=== PATIENT | female | born 1985 | race Caucasian/White ===

== ENCOUNTER 2017-09-08 09:15 | Day surgery (SDC) | payer BC ==
[2017-09-08 09:57] VITALS: BMI 34.4
[2017-09-08 09:59] VITALS: BP 131/79; TEMP 98.2
--- NOTE | 2017-09-08 11:44 | PRG ---
DATE OF SERVICE: 09/08/2017 OB ER ENCOUNTER PRIMARY OB: Dr. Kale Boland CHIEF COMPLAINT: Decreased movement. HISTORY OF PRESENT ILLNESS: The patient is a 31-year-old G4, P1 female with a history of a 17-week l oss and most recently a primary or first trimester loss who is now 38 weeks, has an intrauterine preg casimiro at 38 weeks and reports that she is not feeling her baby move as much as she used to and in par ticularly in the last 12 hours has felt no movement. Patient reports that she is used to have the ba by moving after she eats and lies on her side and did not feel that last night or this morning. She reports a history of hypothyroidism and on Synthroid. The patient denies any recent illness, fever, headache, chest pain, shortness of breath, nausea, vomiting, diarrhea, or constipation. She denies a ny new rashes. She denies any vaginal bleeding or leakage of fluid or uterine contractions. She den ies any urinary symptoms. PAST MEDICAL HISTORY: Thyroid disorder, migraines. PAST SURGICAL HISTORY: Cholecystectomy, D&C, and C section. ALLERGIES: AUGMENTIN. MEDICATIONS: vitamins and Folgard. SOCIAL HISTORY: Denies drug, alcohol or tobacco use. OB LABORATORY DATA: Blood type is O negative, antibody screen is negative. She is rubella immune, R VA nonreactive, hepatitis B surface antigen nonreactive, HIV nonreactive. Her one hour Glucola was 1 19, her quad screen was negative. She is GBS. GBS results are unknown at this time, though testing was performed in July. REVIEW OF SYSTEMS: Per HPI. PHYSICAL EXAMINATION: VITAL SIGNS: Blood pressure 128/84, heart rate of 93, 97% O2 saturation, respiratory rate is 20. GENERAL: She appears to be in no acute distress. She is alert and oriented, and cooperative and ple asant to interact with. HEENT: Normocephalic, atraumatic. ABDOMEN: Soft. GENITOURINARY: Deferred. IMAGIN. heart tracing performed for decreased movement. Baseline is in the 140s with moderat e long-term variability, positive accelerations, no decelerations. Tocometer is without contractions . 2. Bedside ultrasound demonstrates an PAT of 13. ASSESSMENT AND PLAN: The patient is a 31-year-old G4, P1 female with an intrauterine at 38 weeks and 5 days, presenting with decreased movement. There is no evidence at this time of fe ze compromise as evidenced by a reactive NST and normal fluid levels. The patient has an appointmen t on Saturday with her primary OB, Dr. Boland which we have encouraged her to keep. She also has bee n given term labor precautions.
== END 2017-09-08 10:50 | disposition home or self-care (01) ==
LOC: L&D/OP 09:15
PROVIDERS: ATTEND Obstetrics & Gynecology
DX: O36.8130 Decreased fetal movements, third trimester, not applicable or unspecified (principal); O99.283 Endocrine, nutritional and metabolic diseases complicating pregnancy, third trimester; E07.9 Disorder of thyroid, unspecified; O99.355 Diseases of the nervous system complicating the puerperium; G43.909 Migraine, unspecified, not intractable, without status migrainosus; Z88.1 Allergy status to other antibiotic agents; Z88.8 Allergy status to other drugs, medicaments and biological substances; Z79.899 Other long term (current) drug therapy; Z3A.38 38 weeks gestation of pregnancy; Z90.49 Acquired absence of other specified parts of digestive tract; Z98.891 History of uterine scar from previous surgery; Z98.890 Other specified postprocedural states
CPT/HCPCS: 59025; 76815

== ENCOUNTER 2017-09-13 10:08 | Inpatient (IN) | payer BC ==
[2017-09-13 10:47] VITALS: BMI 34.8
[2017-09-13] MEDS ORDERED: Ondansetron HCl/PF 4 MG/2 ML Vial IVP PRN ×4 (11:14→14:00)
[2017-09-13] MEDS ORDERED: Promethazine HCl 25 MG/ML VIAL IM PRN ×2 (11:14→12:25)
[2017-09-13] MEDS ORDERED: Lactated Ringer's 1,000 ML IV SCH (11:14)
[2017-09-13] MEDS ORDERED: Clindamycin/D5W 900 MG in Premix Bag 1 BAG IVPB SCH (11:15)
[2017-09-13 11:27] LABS: Hematocrit 41.4 % (36.0-47.0); Mean Platelet Volume 8.1 fL (7.4-10.4); Red Blood Cell (RBC) Count 4.44 mill/uL (4.20-5.40); White Blood Cell (WBC) Count 13.5 thou/uL (4.8-10.8)
[2017-09-13] MEDS ORDERED: Bicitra 30 ML UDCUP PO SCH (11:30)
[2017-09-13] MEDS ORDERED: Morphine PF 1 MG/ML SYR ONE (11:56)
[2017-09-13] MEDS ORDERED: ePHEDrine/0.9% NaCl/PF SYRINGE 50 mg/10 ml ONE ×2 (11:57→15:28)
[2017-09-13] MEDS ORDERED: Oxytocin 10 UNITS/ML VIAL ONE ×2 (11:57→13:24)
[2017-09-13] MEDS ORDERED: Ondansetron HCl/PF 4 MG/2 ML Vial ONE ×2 (11:57→15:28)
[2017-09-13] MEDS ORDERED: Naloxone HCl 0.4 mg/ml Vial IVP PRN ×2 (12:25)
[2017-09-13] MEDS ORDERED: Meperidine HCl/PF 25 MG/ML VIAL SLOW IVP PRN (12:25)
[2017-09-13] MEDS ORDERED: Naloxone HCl 0.4 mg/ml Vial IV PRN (12:25)
[2017-09-13] MEDS ORDERED: HYDROmorphone 2 MG/ML VIAL SLOW IVP PRN (12:25)
[2017-09-13] MEDS ORDERED: Eucerin (Mineral Oil/Petrolatum,White) 30 gm Jar TOP PRN (12:25)
[2017-09-13] MEDS ORDERED: Promethazine HCl 25 MG SUPP PR PRN (12:25)
[2017-09-13] MEDS ORDERED: diphenhydrAMINE 50 MG/ML VIAL IVP PRN (12:25)
[2017-09-13] MEDS ORDERED: Acetaminophen 1,000 MG in Premix Bag 1 BAG IVPB PRN (12:28)
[2017-09-13] MEDS ORDERED: Ketorolac Tromethamine 30 MG/ML VIAL IVP SCH ×2 (12:30)
[2017-09-13] MEDS ORDERED: Communication Order-Pharmacy FS SCH (12:30)
[2017-09-13] MEDS ORDERED: PHENYLEPHRINE-NS 100 MCG/ML 10 ML SYRINGE ONE ×2 (12:48→15:28)
[2017-09-13] MEDS ORDERED: Labetalol HCl 100 MG/20 ML VIAL ONE (13:04)
[2017-09-13] MEDS ORDERED: Fentanyl 100 MCG/2 ML VIAL ONE (13:36)
[2017-09-13] MEDS ORDERED: Lanolin Ointment 7 GM TUBE TOP PRN (14:00)
[2017-09-13] MEDS ORDERED: Adacel (T-DAP) 0.5 ML VIAL IM ONE (14:00)
[2017-09-13] MEDS ORDERED: Bisacodyl 10 MG SUPP PR PRN (14:00)
[2017-09-13] MEDS ORDERED: Zolpidem Tartrate 5 MG TAB PO PRN (14:00)
[2017-09-13] MEDS ORDERED: Meperidine HCl/PF 25 MG/ML VIAL IM PRN (14:00)
[2017-09-13] MEDS ORDERED: diphenhydrAMINE 25 MG CAP PO PRN (14:00)
[2017-09-13] MEDS ORDERED: Ketorolac Tromethamine 30 MG/ML VIAL ONE (14:46)
[2017-09-13] MEDS ORDERED: LR / Pitocin 40 units/1000 ml 1,000 ML ONE (15:53)
[2017-09-13] MEDS ORDERED: LR / Pitocin 40 units/1000 ml 1,000 ML IV SCH (16:45)
[2017-09-13] MEDS: Ibuprofen 800 MG TAB PO SCH (17:22)
[2017-09-13] MEDS: Ketorolac Tromethamine 30 MG/ML VIAL IVP SCH (19:24)
[2017-09-13] MEDS: Simethicone Chewable 80 MG TAB PO PRN (23:14)
[2017-09-13] MEDS ORDERED: Magnesium 2 GM/NS 0.9% 100 ML 2 GM in Premix Bag 1 BAG IVPB SCH (23:45)
[2017-09-14] MEDS: Ibuprofen 800 MG TAB PO SCH ×4 (00:01→21:35)
[2017-09-14] MEDS: Docusate (Surfak) 240 MG CAP PO SCH ×3 (00:39→21:35)
[2017-09-14] MEDS: Ferrous Sulfate 325 MG TAB PO SCH ×3 (00:39→21:35)
[2017-09-14] MEDS: Lactated Ringer's 1,000 ML IV SCH ×2 (00:42→02:18)
[2017-09-14] MEDS: Ketorolac Tromethamine 30 MG/ML VIAL IVP SCH ×3 (03:00→21:58)
[2017-09-14 06:03] LABS: Hematocrit 26.8 % (36.0-47.0); Mean Platelet Volume 7.4 fL (7.4-10.4); Red Blood Cell (RBC) Count 2.81 mill/uL (4.20-5.40); White Blood Cell (WBC) Count 13.7 thou/uL (4.8-10.8)
[2017-09-14] MEDS: Prenatal Vitamin 1 TAB PO SCH (09:51)
[2017-09-14] MEDS: Simethicone Chewable 80 MG TAB PO PRN ×2 (09:51→18:03)
[2017-09-14] MEDS: Acetaminophen/Codeine 30-300mg Tablet PO PRN ×3 (09:52→19:50)
[2017-09-14] MEDS ORDERED: Sodium Chloride 0.9% 1,000 ML IV SCH (12:30)
--- NOTE | 2017-09-14 12:43 | PDOC.EVN ---
Event Note - Event Note Event Note: I was called by JOHANNE Holguin to evaluate Mrs. Reese for repeated syncope/near syncope with 3 episodes since last night. Pt states that her vision gets dark and then she gets dizzy but she can still hear. Episode last night was associated with chest pressure but no pain. Today's episode happened while she was in the shower (and had been in there for a while when symptoms began per the RN). She had an EKG last night which, per RN, was read as normal. Pt denies any current chest pain, nausea, vomiting or heavy bleeding with the exception of episode last night that resulted in blood on the floor. She has been tolerating PO. She did report some shoulder pain to the RN but her incisional and abdominal pain has been well controlled on Tylenol #3, Toradol, and Motrin. Vital Signs (12 hours) Temp Pulse Pulse Pulse Pulse Pulse Pulse 09/14/17 04:00 98.1 F 85 09/14/17 02:00 97.5 F L 78 71 09/14/17 01:33 81 77 110 H 110 H 09/14/17 00:45 90 Pulse Resp Resp Resp Resp Resp Resp 09/14/17 04:00 18 09/14/17 02:00 18 16 09/14/17 01:33 81 20 24 H 24 H 36 H 09/14/17 00:45 18 Resp BP BP BP BP BP BP 09/14/17 04:00 109/62 09/14/17 02:00 67/45 L 111/55 L 09/14/17 01:33 24 H 67/30 L 68/40 L 102/58 L 100/59 L 09/14/17 00:45 107/57 L Pulse Ox Pulse Ox Pulse Ox Pulse Ox Pulse Ox 09/14/17 04:00 09/14/17 02:00 96 09/14/17 01:33 96 94 L 99 97 09/14/17 00:45 Weight Weight 236 lb Gen. comfortably lying in bed, NAD Resp: CTA bilat no W, R, R CV: RRR no G, R, I/ SM Abd: Inc C/D/I with dermabond, no induration or erythema. SOft, NT, ND. Fundus firm at umbilicus and NT Ext: no C, C, E Orthostatics: Ooylee010/63 P 95 Sitting 118/63 P116 Standing 124/66 P 118 A/P: POD #1 s/p CD for breech with recurrent syncope vs near syncope. I suspect vasovagal vs. fluid status given the positive orthostatics. Dr. Boland has been made aware and is en route. Will check CBC, BMP, cardiac panel. Will start 1L NS fluid bolus and then repeat orthostatics. I will follow up on labs.
[2017-09-14] MEDS ORDERED: Sodium Chloride 0.9% 10 ML ONE (13:14)
[2017-09-14 13:15] LABS: #Basophils 0.1 thou/uL (0.0-0.2); #Eosinphils 0.1 thou/uL (0.0-0.7); #Lymphocytes 0.9 thou/uL (1.20-3.40); #Monocytes 0.5 thou/uL (0.11-0.59); #Neutrophils 8.5 thou/uL (1.40-6.50); %Basophils 0.7 % (0.0-1.0); %Eosinophils 0.5 % (0.0-10.0); %Lymphocytes 8.9 % (21.0-51.0); %Monocytes 4.5 % (0.0-10.0); Hematocrit 28.6 % (36.0-47.0); Mean Platelet Volume 7.9 fL (7.4-10.4); Red Blood Cell (RBC) Count 3.01 mill/uL (4.20-5.40); White Blood Cell (WBC) Count 9.9 thou/uL (4.8-10.8)
[2017-09-14 13:21] LABS: Anion Gap 12 mmol/L (10-20); BUN (Urea Nitrogen) 8 mg/dL (7.0-18.7); Calc. Creatinine Clearance 209 mL/min (70-130); Calcium 8.8 mg/dL (7.8-10.44); Carbon Dioxide 22 mmol/L (22-29); Chloride 107 mmol/L (98-107); Estimated GFR-MDRD Greater than 90
[2017-09-14 13:41] LABS: Troponin I Less than 0.010 ng/mL (< 0.028)
--- NOTE | 2017-09-14 14:26 | PDOC.EVN ---
Event Note - Event Note Event Note: Labs reviewed. Hct is relatively stable. Although CK MB is elevated this could be secondary to recent delivery and the Troponin I was normal as are electrolytes. Will proceed with the IVF ordered by Dr. Boland and he will be back to see the patient after her bolus. Laboratory Results - last 24 hr 09/14/17 09/14/17 09/14/17 05:24 12:59 12:59 WBC 13.7 H RBC 2.81 L Hgb 9.3 L Hct 26.8 L MCV 95.3 MCH 33.1 H MCHC 34.8 RDW 12.5 Plt Count 225 MPV 7.4 Neutrophils % Lymphocytes % Monocytes % Eosinophils % Basophils % Neutrophils # Lymphocytes # Monocytes # Eosinophils # Basophils # Fibrinogen Sodium 137 Potassium 4.0 Chloride 107 Carbon Dioxide 22 Anion Gap 12 BUN 8 Creatinine 0.66 Estimated GFR (MDRD) Greater than 90 Glucose 105 Calcium 8.8 CK-MB (CK-2) 7.9 H* Troponin I Less than 0.010 09/14/17 09/14/17 12:59 12:59 WBC 9.9 RBC 3.01 L Hgb 9.7 L Hct 28.6 L MCV 95.2 MCH 32.1 H MCHC 33.7 RDW 12.5 Plt Count 218 MPV 7.9 Neutrophils % 85.3 H Lymphocytes % 8.9 L Monocytes % 4.5 Eosinophils % 0.5 Basophils % 0.7 Neutrophils # 8.5 H Lymphocytes # 0.9 L Monocytes # 0.5 Eosinophils # 0.1 Basophils # 0.1 Fibrinogen 425 Sodium Potassium Chloride Carbon Dioxide Anion Gap BUN Creatinine Estimated GFR (MDRD) Glucose Calcium CK-MB (CK-2) Troponin I
[2017-09-14] MEDS: D5 LR 500 ML IV SCH ×3 (21:54→21:57)
[2017-09-14] MEDS: Dextrose 5%-Lactated Ringers 1,000 ML IV SCH (21:58)
[2017-09-15] MEDS: Simethicone Chewable 80 MG TAB PO PRN ×2 (00:05→09:26)
[2017-09-15] MEDS: Dextrose 5%-Lactated Ringers 1,000 ML IV SCH ×4 (00:39→22:58)
[2017-09-15] MEDS: Ketorolac Tromethamine 30 MG/ML VIAL IVP SCH ×4 (00:39→21:20)
[2017-09-15] MEDS: Acetaminophen/Codeine 30-300mg Tablet PO PRN ×4 (02:55→19:44)
[2017-09-15] MEDS: Ibuprofen 800 MG TAB PO SCH ×3 (05:55→21:00)
[2017-09-15] MEDS: Prenatal Vitamin 1 TAB PO SCH (09:26)
[2017-09-15] MEDS: Docusate (Surfak) 240 MG CAP PO SCH ×2 (09:26→21:00)
[2017-09-15] MEDS: Ferrous Sulfate 325 MG TAB PO SCH ×2 (09:26→21:00)
[2017-09-16] MEDS: Simethicone Chewable 80 MG TAB PO PRN (01:53)
[2017-09-16] MEDS: Acetaminophen/Codeine 30-300mg Tablet PO PRN ×3 (04:32→13:16)
[2017-09-16] MEDS: Ibuprofen 800 MG TAB PO SCH ×2 (05:45→13:16)
[2017-09-16 09:08] VITALS: BP 117/67; TEMP 98.7
[2017-09-16] MEDS: Prenatal Vitamin 1 TAB PO SCH (09:09)
[2017-09-16] MEDS: Ferrous Sulfate 325 MG TAB PO SCH (09:09)
[2017-09-16] MEDS: Docusate (Surfak) 240 MG CAP PO SCH (09:09)
[2017-09-16] MEDS: Dextrose 5%-Lactated Ringers 1,000 ML IV SCH (09:46)
--- NOTE | 2017-09-16 10:46 | OP ---
DATE OF PROCEDURE: 09/13/2017 ATTENDING STAFF PHYSICIAN: Kale Boland M.D. SURGEON: Kale Boland M.D. SOUND ENGINEER SURGEON: Leola Roman M.D. PREOPERATIVE DIAGNOSES: 1. Term intrauterine at 39 and 3/7 weeks. 2. Prior . 3. Hitesh breech presentation. POSTOPERATIVE DIAGNOSES: 1. Term intrauterine at 39 and 3/7 weeks. 2. Prior . 3. Hitesh breech presentation. PROCEDURE: Repeat low-transverse section. ANESTHESIA: Spinal catheterization. FINDINGS: 1. Hitesh breech presentation. 2. Small uterine window with scar dehiscence. 3. Nuchal cord x2. 4. Normal fallopian tubes and ovaries. 5. Vigorous male , 7 pounds 13 ounces, Apgars 8 and 9. COMPLICATIONS: None. SPECIMENS REMOVED: Cord blood. BLOOD LOSS: 800-900 mL. PROCEDURE FOLLOWS: After thorough consent and counseling, Mrs. Reese was taken to the operating room and an adequate level of anesthesia was obtained via spinal catheterization. The patient was pr epped and draped in the usual sterile fashion for abdominal surgery. A Farfan was placed in the [facility] er, which was noted to be draining clear urine. Attention was then turned to performing the repeat C -section for breech presentation. A Pfannenstiel incision was made and carried sharply to the fascia, which was also sharply incised. The midline was identified and the rectus muscles were retracted laterally. The abdominopelvic cavit y was entered with usual safeguards carried out. A retractor was placed and a bladder flap was creat ed on the vesicouterine peritoneum. The bladder blade was then placed. A low-transverse incision wa s made on the well-developed lower uterine segment. Upon entering the amniotic sac, a small amount o f clear amniotic fluid was visualized. The was noted to be somewhat in an oblique presentatio n with head facing down. The baby was ballottable in the pelvis. Internal version was performed and the head was delivered into the incision. A vacuum was used to facilitate delivery of the head in a n atraumatic fashion. Nuchal cord x2 was reduced. Shoulders and body were then carefully delivered in an atraumatic fashion. The cord was doubly clamped and cut and the infant was handed to the [facility] tology team in attendance for the delivery. The infant was a vigorous viable male weighing 7 pounds 13 ounces with Apgars of 8 and 9 obtained at 1 and 5 minutes respectively. Cord blood was obtained. The placenta was manually removed from the uterus. The uterus was exteriorized and poor tone was in itially noted. Vigorous massage was performed with subsequent improvement in tone. There was an ext ension out laterally into the left descending branch of the uterine artery. Frye clamps were p laced on the lower segment and the bleeder. Brisk bleeding was noted initially, all this was very qu ickly controlled. The low-transverse incision was closed with a running locking ligature of #1 chrom ic. A second imbricating layer was placed to faciliate and strengthen hemostasis secondary to the sm all scar dehiscence, which measured about 4 cm in the midline. The vesicouterine peritoneum was reap proximated at the lower uterine segment with a running ligature of 3-0 Monocryl suture. The posterio r cul-de-sac and gutters were cleared of clot and fluid. The incisions were carefully inspected and noted to be normal. The uterus, fallopian tubes, and ovaries were all inspected and noted to be norm al. The uterus was returned to the abdomen and good tone and hemostasis was appreciated. Initially, lap, sponge, and needle counts were incorrect by missing 1 sponge. There was a diligent search for the sponge, which was finally identified up underneath the pubic bone in the anterior cul-de-sac. On ce this was identified, lap, sponge, and needle counts were correct. The peritoneum was then closed with a running ligature of 2-0 Vicryl. Rectus muscles were reapproximated in the midline with interr upted ligatures of 2-0 Vicryl. The fascia was then closed with 2 ligatures of 0 Vicryl, which were t ied in the midline. The incision was irrigated with copious amount of warm normal saline. The subcu taneous tissue was then closed with interrupted ligatures of 2-0 plain suture. The skin was closed w ith a subcuticular stitch of 4-0 Monocryl. Pressure dressing and ice pack subsequently placed. Lap, sponge, and needle counts correct x3. Estimated blood loss during the surgical procedure was approx imately 800-900. The patient was taken to the recovery room in good condition. Immediately following surgery, the pat ient and family were made aware of the surgical procedure and operative findings. Questions answered to their satisfaction.
== END 2017-09-16 14:19 | disposition home or self-care (01) | DRG 766 ==
LOC: L&D 10:08 → 3SW 16:44 → EDSTATUS 09-28 11:01
PROVIDERS: ADMIT Obstetrics & Gynecology; ATTEND Obstetrics & Gynecology
PROC: 10D00Z1 Extraction of Products of Conception, Low, Open Approach (ICD-10-PCS; principal; 2017-09-13)
PROC: 10907ZC Drainage of Amniotic Fluid, Therapeutic from Products of Conception, Via Natural or Artificial Opening (ICD-10-PCS; 2017-09-13)
DX: O32.1XX0 Maternal care for breech presentation, not applicable or unspecified (principal); O34.219 Maternal care for unspecified type scar from previous cesarean delivery; O69.1XX0 Labor and delivery complicated by cord around neck, with compression, not applicable or unspecified; Z37.0 Single live birth; Z3A.39 39 weeks gestation of pregnancy
CPT/HCPCS: 36415; 51702; 80048; 82553; 84484; 85027; 85384; 86780; 86850; 86900; 86901; 87340; 93005; 93010; A4216; J1885; J2175; J2274; J2405; J2590; J3010; J3475; J3490

== ENCOUNTER 2019-06-25 13:53 | Outpatient (CLI) | payer OTHER ==
--- NOTE | 2019-06-25 15:45 | ULT ---
THYROID ULTRASOUND: 06/25/19 HISTORY: Enlarged thyroid gland. Real time imaging of the right and left lobes of the gland were performed. Th e right lobe measures 1.6 x 2 x 4.7 cm. Left lobe 1.6 x 1.9 x 4.7 cm. On the right side in the upper pole region, there is an approximately 1.4 x 1.8 cm solid nodule. The margins of which are somewhat ill-defined. No microcalcifications. On the left side, there is a 1.2 x 1.9 cm solid nodule, more in the mid pole region. It is also isoec hoic to surrounding tissue, wider than tall, slightly ill-defined borders and no calcifications. IMPRESSION: Bilateral thyroid nodules. Both of these would be TI-RADS 3 lesions for which follow-up is recommende d given their size. POS: DALE
== END 2019-06-25 13:54 | disposition home or self-care (01) ==
LOC: SCSULT 13:53
PROVIDERS: ATTEND Nurse Practitioner Family
DX: E04.9 Nontoxic goiter, unspecified (principal); E04.2 Nontoxic multinodular goiter
CPT/HCPCS: 76536

== ENCOUNTER 2019-07-21 12:35 | Day surgery (SDC) | payer OTHER ==
[~2019-07-21 12:35] MED LIST: FLU VACC QS2019-20(6MOS UP)/PF 60 MCG/0.5 ML SYRINGE IM ONE
[2019-07-21] MEDS ORDERED: Sodium Bicarbonate 2.5 MEQ/5 ML VIAL ONE (12:53)
[2019-07-21] MEDS ORDERED: Lidocaine 1% PF 5 ML VIAL ONE (12:53)
[2019-07-21 13:39] VITALS: BP 115/76; TEMP 98
--- NOTE | 2019-07-21 14:31 | ULT ---
ULTRASOUND GUIDED FINE NEEDLE ASPIRATION HYPOECHOIC NODULE SUPERIOR RIGHT LOBE OF THYROID: ULTRASOUND GUIDED FINE NEEDLE ASPIRATION HYPOECHOIC NODULE LEFT THYROID: INDICATIONS: Prior thyroid nodules have been detected on ultrasound. The patient is referred for FNA of the nodule s seen in both the right and left lobes. FINDINGS: The hypoechoic nodule posterior left mid lobe is sampled with FNA using a 25 gauge needle. Two FNA sa mples were obtained through this nodule under ultrasound guidance. Ultrasound confirms the location o f the sample within the nodule. The sample is given to pathology and adequacy was confirmed. A 25 gauge needle FNA was performed on the nodule in the superior right lobe, under ultrasound guidan ce. Two samples were obtained. Ultrasound confirmed sampling through the mid portion of the nodule wi th each sample. Pathology confirmed adequacy. PROCEDURE IN DETAIL: The thyroid was evaluated with ultrasound and the previously noted nodules were again identified. The skin was prepped and draped in a sterile manner. Local anesthesia was administe red with Lidocaine and bicarbonate on the left, under ultrasound guidance. The left lobe nodule was t hen sampled with a 25 gauge needle FNA under, ultrasound guidance, x2. Local anesthesia was then admi nistered on the right, under ultrasound guidance. The right thyroid nodule was sampled under ultrasou nd guidance with a 25 gauge needle x2. The patient tolerated the procedure well and there were no problems or complications. POS: BERNARD
== END 2019-07-21 14:10 | disposition home or self-care (01) ==
LOC: ULT 12:35
PROVIDERS: ATTEND Otolaryngology Plastic Surgery within the Head & Neck
PROC: 0GBH3ZX Excision of Right Thyroid Gland Lobe, Percutaneous Approach, Diagnostic (ICD-10-PCS; principal; 2019-07-21)
PROC: BG44ZZZ Ultrasonography of Thyroid Gland (ICD-10-PCS; principal; 2019-07-21)
PROC: 0GBG3ZX Excision of Left Thyroid Gland Lobe, Percutaneous Approach, Diagnostic (ICD-10-PCS; principal; 2019-07-21)
DX: E04.1 Nontoxic single thyroid nodule (principal); E03.9 Hypothyroidism, unspecified; J34.3 Hypertrophy of nasal turbinates; Z79.899 Other long term (current) drug therapy; Z87.891 Personal history of nicotine dependence; Z88.0 Allergy status to penicillin
CPT/HCPCS: 60100; 76942; 88173; 90471; 90686; G0008; J2001

== ENCOUNTER 2019-07-27 08:46 | Outpatient (CLI) | payer OTHER | END 2019-07-27 08:47 | disposition home or self-care (01) | LOC: CTENTCT 08:46 | PROVIDERS: ATTEND Otolaryngology Plastic Surgery within the Head & Neck | DX: J32.9 Chronic sinusitis, unspecified (principal) | CPT/HCPCS: 70486 ==

== ENCOUNTER 2020-05-26 09:09 | Outpatient (CLI) | payer OTHER ==
--- NOTE | 2020-05-26 10:34 | ULT ---
THYROID ULTRASOUND: HISTORY: Thyroid nodule and neck pressure. FINDINGS: Real-time imaging of the right and left lobes of the thyroid were performed. This shows a very heter ogeneous appearance to the gland. The right lobe measures 1.2 x 1.5 x 4.5 cm and the left lobe 1.4 x 1.4 x 4.6 cm. It is actually very difficult to definitely define any discrete nodules given the over all heterogeneity to the gland. The nodules were described on the prior examination and these areas appear similar on this study. The area on the left side measured 2.1 cm in maximum length and now is seen as measuring 2 cm. A vague area of nodularity in the right lobe measures in the 1.3 cm range m aximum also appears stable. IMPRESSION: Very heterogeneous gland is actually very difficult to define discrete nodules. I do not appreciate any interval change since a 06/25/2019 study. POS: RONNI
== END 2020-05-26 09:10 | disposition home or self-care (01) ==
LOC: SCSULT 09:09
PROVIDERS: ATTEND Internal Medicine Endocrinology, Diabetes & Metabolism
DX: R22.0 Localized swelling, mass and lump, head (principal); E04.2 Nontoxic multinodular goiter
CPT/HCPCS: 76536

== ENCOUNTER 2020-09-02 09:58 | Outpatient (CLI) | payer OTHER ==
--- NOTE | 2020-09-02 10:44 | MMO ---
Bilateral MAMMO Bilat Diag DDI+GREGORY. CLINICAL HISTORY: Patient is 35 years old and is seen for diagnostic exam and palpable abnormality in both breasts. The patient has the following family history of breast cancer: paternal grandmother. The patient has no personal history of cancer. VIEWS: The views performed were: bilateral mediolateral with tomosynthesis; bilateral craniocaudal with tomosynthesis; bilateral mediolateral oblique with tomosynthesis; and left craniocaudal. FILMS COMPARED: The present examination has been compared to a prior imaging study performed at [facility] on 09/02/2020. This study has been interpreted with the assistance of computer-aided detection. MAMMOGRAM FINDINGS: There are scattered fibroglandular densities. There are no suspicious masses, suspicious calcifications, or areas of architectural distortion. There are no mammographic or sonographic abnormalities in the areas of palpable concern. The patient is referred back to her clinician. Negative imaging findings should not preclude biopsy if clinical findings are suspicious. IMPRESSION: THERE ARE NO MAMMOGRAPHIC OR SONOGRAPHIC ABNORMALITIES IN THE AREAS OF PALPABLE CONCERN. THE PATIENT IS REFERRED BACK TO HER CLINICIAN. NEGATIVE IMAGING FINDINGS SHOULD NOT PRECLUDE BIOPSY IF CLINICAL FINDINGS ARE SUSPICIOUS. THE RESULTS OF THIS EXAM WERE SENT TO THE PATIENT. ACR BI-RADS Category 1 - Negative MAMMOGRAPHY NOTE: 1. A negative mammogram report should not delay a biopsy if a dominant of clinically suspicious mass is present. 2. Approximately 10% to 15% of breast cancers are not detected by mammography. 3. Adenosis and dense breasts may obscure an underlying neoplasm. Reported by: RADHA UMANA MD Electonically Signed: [id number]
--- NOTE | 2020-09-02 10:45 | ULT ---
EXAM: US Breast Limited Rt PROVIDED CLINICAL HISTORY: Right breast palpable abnormality COMPARISON: None FINDINGS: Limited sonographic interrogation was performed of the 7:00 position right breast in the region of pa lpable concern. The sonographic appearance of the breast tissue in this region is normal. IMPRESSION: No sonographic abnormality is evident in the region of clinical concern. Negative imaging findings sh ould not preclude further evaluation of a clinically suspicious finding. Patient is referred back to her clinician.
--- NOTE | 2020-09-02 10:45 | ULT ---
EXAM: US Breast Limited Lt PROVIDED CLINICAL HISTORY: Palpable abnormality COMPARISON: Concurrently performed diagnostic mammogram FINDINGS: Limited sonographic interrogation was performed of the 7:00 left breast in the region of palpable con cern. The sonographic appearance of the breast tissue in this region is normal. IMPRESSION: No sonographic abnormality is evident in the region of clinical concern. Negative imaging findings sh ould not preclude further evaluation of a clinically suspicious finding. Patient is referred back to her clinician.
== END 2020-09-02 09:59 | disposition home or self-care (01) ==
LOC: BICMAMMO 09:58
PROVIDERS: ATTEND Obstetrics & Gynecology
DX: N60.19 Diffuse cystic mastopathy of unspecified breast (principal); N63.10 Unspecified lump in the right breast, unspecified quadrant; N63.20 Unspecified lump in the left breast, unspecified quadrant; R92.8 Other abnormal and inconclusive findings on diagnostic imaging of breast
CPT/HCPCS: 77066; G0279

== ENCOUNTER 2022-07-05 08:29 | Outpatient (CLI) | payer BC | END 2022-07-05 08:30 | disposition home or self-care (01) | LOC: BICMAMMO 08:29 | PROVIDERS: ATTEND Nurse Practitioner Family | DX: N60.11 Diffuse cystic mastopathy of right breast (principal); R92.8 Other abnormal and inconclusive findings on diagnostic imaging of breast; N60.12 Diffuse cystic mastopathy of left breast | CPT/HCPCS: 77066; G0279 ==